=== PATIENT | male | born 1945 | race Caucasian/White ===

== ENCOUNTER 2020-10-04 08:57 | Outpatient (CLI) | payer OTHER | END 2020-10-04 08:58 | disposition home or self-care (01) | LOC: CSHMRI 08:57 | PROVIDERS: ATTEND Orthopaedic Surgery | DX: M54.5 Low back pain (principal); Z98.890 Other specified postprocedural states; G03.9 Meningitis, unspecified; M48.56XD Collapsed vertebra, not elsewhere classified, lumbar region, subsequent encounter for fracture with routine healing; M47.816 Spondylosis without myelopathy or radiculopathy, lumbar region; M51.36 Other intervertebral disc degeneration, lumbar region; M48.061 Spinal stenosis, lumbar region without neurogenic claudication; M48.04 Spinal stenosis, thoracic region | CPT/HCPCS: 72158 ==

== ENCOUNTER 2023-08-20 07:20 | Day surgery (SDC) | payer OTHER ==
[2023-08-19 11:24] VITALS: BMI 31.3
[2023-08-20] MEDS ORDERED: Lidocaine 2% MPF 10 ML AMP (For Epidural Use) ONE (09:23)
[2023-08-20] MEDS ORDERED: PROPOFOL 40 ML ONE (09:24)
[2023-08-20] MEDS ORDERED: Metoprolol Tartrate 5 MG (5 mL) VIAL ONE (09:49)
[2023-08-20] MEDS ORDERED: PHENYLEPHRINE-NS 100 MCG/ML 10 ML SYRINGE ONE (09:53)
== END 2023-08-20 10:50 | disposition home or self-care (01) ==
LOC: CSHSDC 07:20
PROVIDERS: ATTEND Internal Medicine Gastroenterology
PROC: 0DBH8ZZ Excision of Cecum, Via Natural or Artificial Opening Endoscopic (ICD-10-PCS; principal; 2023-08-20)
DX: Z12.11 Encounter for screening for malignant neoplasm of colon (principal); K63.5 Polyp of colon; K64.8 Other hemorrhoids; K57.30 Diverticulosis of large intestine without perforation or abscess without bleeding; E11.22 Type 2 diabetes mellitus with diabetic chronic kidney disease; I12.9 Hypertensive chronic kidney disease with stage 1 through stage 4 chronic kidney disease, or unspecified chronic kidney disease; N18.9 Chronic kidney disease, unspecified; E78.5 Hyperlipidemia, unspecified; I25.10 Atherosclerotic heart disease of native coronary artery without angina pectoris; Z86.010 Personal history of colon polyps; Z86.73 Personal history of transient ischemic attack (TIA), and cerebral infarction without residual deficits; Z95.1 Presence of aortocoronary bypass graft
CPT/HCPCS: 36416; J2704